=== PATIENT | female | born 1940 | race Caucasian/White ===

== ENCOUNTER → 2016-08-10 | Outpatient (CLI) | payer BC ==
[~2016-08-10] MED LIST: 3N1 COMMODE MC; ALP2OP10 BOTH EYES; ASPI-781 PO; BEN25 PO; COMBIG5 BOTH EYES; DULR PR; LORA10TA3 PO; OXYC-481 PO; RANI150T9 PO; UDMOM PO; WALK1EAC23 MC
--- NOTE | 2016-08-10 14:19 | RADRPT ---
PROCEDURE: XR Right hip and pelvis. CLINICAL INDICATION: Right hip pain. Pelvic pain. Postop. TECHNIQUE: Three views. Frontal pelvis. Frontal and lateral right hip. COMPARISON: 02/24/2016. FINDINGS: There is no fracture or dislocation. The soft tissues are normal. There is a right hip total arthroplasty which appears satisfactory. There are moderate degenerative changes of the left hip with joint space narrowing, subarticular scl erosis, subchondral cysts, and osteophytes. There are degenerative changes of the lower lumbar spin e. There is no lytic or blastic lesion. The sacroiliac joints are grossly normal. IMPRESSION: 1. Satisfactory postoperative appearance of the right hip. 2. Moderate degenerative changes of the left hip. 3. Degenerative changes of the lower lumbar spine. RPTAT: QQ .Juan Kapadia MD, MD Date Time Electronically viewed and signed by .Juan Kapadia MD, MD on 08/10/2016 14:19 .R/
== END | disposition home or self-care (01) ==
LOC: HKI 13:14
PROVIDERS: ATTEND Orthopaedic Surgery
DX: Z47.1 Aftercare following joint replacement surgery (principal); Z96.641 Presence of right artificial hip joint
CPT/HCPCS: 73502; G0463